=== PATIENT | male | born 1995 | race Caucasian/White ===

== ENCOUNTER 2018-10-16 12:05 | Emergency (ER) | payer SELFPAY ==
[~2018-10-16] VITALS: Ht 177.8 cm; Wt 101.4 kg
[~2018-10-16 12:05] MED LIST: HYDR-3498 PO; IBUP-1542 PO; IBUP-1561 PO
[2018-10-16 12:27] VITALS: BP 121/60; PULSE 65; RESP 20; Ht 177.8 cm; Wt 101.4 kg
== END 2018-10-16 14:56 | disposition home or self-care (01) ==
LOC: FTE 12:05
DX: N50.9 Disorder of male genital organs, unspecified (principal)
CPT/HCPCS: 76870; 81001